=== PATIENT | female | born 1955 | race American Indian/Alaskan Native ===

== ENCOUNTER 2017-01-11 17:25 | Emergency (ER) | payer MEDICARE ==
[2017-01-11] MEDS ORDERED: PEPCID IV ONE (18:39)
[2017-01-11] MEDS ORDERED: DELTASONE PO ONE (19:01)
[2017-01-11] MEDS ORDERED: PEPCID PO ONE (19:01)
[2017-01-11] MEDS ORDERED: VISTARIL PO ONE (19:02)
--- NOTE | 2017-01-11 19:07 | Emergency Department Report ---
HPI - General Chief Complaint: Allergic Reaction Time Seen by Provider: 01/11/17 17:42 - HPI HPI: 61-year-old female with a past medical history of CVA with right-sided deficits , hypertension, neuropathy, and borderline diabetes presents to the hospital complaints of allergic reaction since last night. At approximately 1 AM patient woke up from sleep which generalized itching and whelps. Patient denies any airway issues and denies sore throat, shortness of breath, or wheezing. Patient denies any new exposures to medications, soaps, lotions. She took no meds prior to arrival but received Benadryl IM via EMS. No pain reported. ED Past Medical Hx - Past Medical History Previous Medical History?: Yes Hx Hypertension: Yes Hx CVA: Yes Hx Seizures: Yes - Surgical History Past Surgical History?: Yes Hx Cholecystectomy: Yes Additional Surgical History: hysterectomy. c-spine. lower back - Social History Smoking Status: Never Smoker Substance Use Type: None - Medications Home Medications: Home Medications Medication Instructions Recorded Confirmed Last Taken Type Famotidine [Pepcid] 20 mg PO BID #10 tablet 01/11/17 Unknown Rx Prednisone [predniSONE 10 mg 10 mg PO .TAPER #1 tab.ds.pk 01/11/17 Unknown Rx (6-Day Pack, 21 Tabs)] diphenhydrAMINE [Benadryl CAP] 50 mg PO Q8HR PRN #30 capsule 01/11/17 Unknown Rx ED Review of Systems ROS: Stated complaint: ALLERGIC REACTION Other details as noted in HPI Other: Constitutional: No fevers chills Eyes: No eye pain visual changes ENT: No ear pain or throat pain Neck: Denies pain Respiratory: Denies cough wheezing shortness of breath Cardiovascular: Denies chest pain, palpitations, syncope GI: Denies abdominal pain, nausea, vomiting, diarrhea : Denies dysuria, urinary frequency, or urgency Musculoskeletal: Denies back pain, joint swelling Skin: As per hpi Neurologic: Denies headache, numbness, weakness Psychiatric: Denies suicidal ideation, hallucinations Physical Exam - Physical Exam Vital Signs: Vital Signs 01/11/17 18:19 Temperature 98.1 F Pulse Rate 69 Respiratory 20 Rate Blood Pressure 121/64 O2 Sat by Pulse 99 Oximetry Physical Exam: General: No limitations, patient is alert in no acute distress Head exam: Atraumatic, normocephalic Eyes exam: Normal appearance, left upper lid edema him a bilateral conjunctiva clear ENT: Moist mucous membrane, normal oropharynx, no edema or throat swelling Neck exam: Normal inspection, full range of motion, no meningismus nontender Respiratory exam: Clear to auscultation bilateral, no wheezes, rales, crackles Cardiovascular: Normal rate and rhythm Abdomen: Soft, nondistended, and nontender, with normal bowel sounds, no rebound, or guarding Extremity: Full range of motion normal inspection no deformity Back: Normal Inspection, full range of motion, no tenderness Neurologic: Alert, oriented x3, cranial nerves intact, no motor or sensory deficit Psychiatric: normal affect, normal mood Skin: Left-sided whelps to upper and lower extremity ecchymosis as well ED Course Vital Signs 01/11/17 18:19 Temperature 98.1 F Pulse Rate 69 Respiratory 20 Rate Blood Pressure 121/64 O2 Sat by Pulse 99 Oximetry - Reevaluation(s) Reevaluation #1: 01/11/17 19:07 Patient received Benadryl IM prior to arrival. Additional prednisone, Atarax, and Pepcid ordered Reevaluation #2: 01/11/17 19:55 pt awaiting administration of order oral meds but states she R he feels well enough to go home. She reports that itching has improved ED Medical Decision Making - Medical Decision Making Cause of acute allergic reaction unknown. No signs of insect bites on extremities. Patient feels better with Benadryl prior to arrival and will received additional or medications prior to discharge. Patient discharged home with treatment for allergic reaction and follow-up encouraged. Informed the risk of hypoglycemia while taking prednisone and states she has access to a Accu -Chek and will monitor her glucose. - Differential Diagnosis acute allergic reaction, angioedema Critical Care Time: No Critical care attestation.: If time is entered above; I have spent that time in minutes in the direct care of this critically ill patient, excluding procedure time. ED Disposition Clinical Impression: Allergic reaction Disposition: DISCHARGED TO HOME OR SELFCARE Is pt being admited?: No Does the pt Need Aspirin: No Condition: Stable Instructions: Allergies (ED) Additional Instructions: Continue taking the medication as prescribed. Prednisone is a steroids a may cause a temporary increase in glucose. He is continuing to monitor and a few glucose remains high and does not improve then you will need further evaluation. Follow-up with your doctor within 2-3 days. Return to the ER if symptoms worsen. Prescriptions: diphenhydrAMINE [Benadryl CAP] 50 mg PO Q8HR PRN #30 capsule PRN Reason: Itching Famotidine [Pepcid] 20 mg PO BID #10 tablet Prednisone [predniSONE 10 mg (6-Day Pack, 21 Tabs)] 10 mg PO .TAPER #1 tab.ds.pk Referrals: Carol RYAN [Other] - 2-3 Days Time of Disposition: 20:00
[2017-01-11 20:23] VITALS: BP 140/81
== END 2017-01-11 20:23 | disposition home or self-care (01) ==
LOC: ED 17:25
DX: T78.40XA Allergy, unspecified, initial encounter (principal); I10 Essential (primary) hypertension; I63.9 Cerebral infarction, unspecified
CPT/HCPCS: 99283; J7512; Q0177